=== PATIENT | female | born 1940 | race Caucasian/White ===

== ENCOUNTER 2018-04-14 14:30 | Emergency (ER) | payer MEDICARE, OTHER ==
[2018-04-14 14:46] VITALS: TEMP 97.8; O2SAT 98
[2018-04-14 14:55] LABS: BASOPHILS % (AUTO) 2 % (0-3); EOSINOPHILS % (AUTO) 4 % (0-9); HEMATOCRIT 38 % (35-47); HEMOGLOBIN 12.5 gm/dl (12.0-15.5); LYMPHOCYTES % (AUTO) 31.3 % (10-50); MEAN CORPUSCULAR HEMOGLOBIN 33.2 pg (27.0-32.0); MEAN CORPUSCULAR HGB CONC 32.8 gm/dl (32.0-36.0); MONOCYTES % (AUTO) 11.7 % (0-12); NEUTROPHILS % (AUTO) 51.5 % (37-80)
[2018-04-14 14:59] LABS: MEAN CORPUSCULAR VOLUME 101 fL (81-99)
[2018-04-14 15:09] LABS: BLOOD UREA NITROGEN 18 mg/dl (7-18); CALCIUM 8.6 mg/dl (8.5-10.1); CHLORIDE 109 mMol/L (98-107); CREATININE 1.23 mg/dl (0.60-1.00); GLUCOSE 88 mg/dl (74-106); POTASSIUM 3.9 mMol/L (3.5-5.1); SODIUM 143 mMol/L (136-145); TROP I < 0.017 ng/ml (0.000-0.056)
[2018-04-14] MEDS: SODIUM CHLORIDE 0.9% 500 ML 500 ML IV ONE (15:10)
[2018-04-14 15:14] LABS: CARBON DIOXIDE 29.8 mEq/L (21-32)
[2018-04-14] MEDS: SODIUM CHLORIDE 0.9% FLUSH 10 ML SOL IV PRN (15:24)
[2018-04-14 15:30] LABS: APPEARANCE,URINE Slightly Cloudy; BILIRUBIN,URINE NEGATIVE (NEGATIVE); COLOR,URINE Yellow; GLUCOSE, URINE (UA) NEGATIVE (NEGATIVE); KETONES,URINE TRACE (NEGATIVE); LEUKOCYTE ESTERASE ,URINE 2+ (NEGATIVE); NITRATE,URINE NEGATIVE (NEGATIVE); OCCULT BLOOD,URINE TRACE INTACT (NEG-TRACE); UROBILINOGEN,URINE 0.2 (0.2-1.0 EU)
[2018-04-14 15:45] LABS: BACTERIA 2+ (< 1+); CRYSTALS NEGATIVE (0-3 AVE/HPF); EPITHELIAL CELLS 0-2 (SQUAMOUS); RBC,URINE 0-2 (0-3AV/HPF)
[2018-04-14] MEDS ORDERED: SODIUM CHLORIDE 0.9% 50 ML 25 ML IV PRN (16:10)
[2018-04-14] MEDS ORDERED: LEVOFLOXACIN 25 MG/ML SOL IV ONE (16:14)
[2018-04-14] MEDS: LEVOFLOXACIN 25 MG/ML 500 MG in SODIUM CHLORIDE 0.9% 100 ML 100 ML IV ONE (16:19)
[2018-04-14] MEDS ORDERED: CIPROFLOXACIN HCL 500 MG TAB PO ONE (17:08)
[2018-04-14] MEDS: CIPROFLOXACIN HCL 500 MG TAB PO SCH (17:13)
[2018-04-14 18:56] VITALS: BP 124/55; PULSE 71; RESP 15
== END 2018-04-14 17:20 | DRG 312 ==
LOC: ED 14:30
DX: R55 Syncope and collapse (principal); N39.0 Urinary tract infection, site not specified; R53.1 Weakness; E86.0 Dehydration
CPT/HCPCS: 36415; 74019; 80048; 81001; 83880; 84484; 85025; 87088; 93005; 96365; 96366; 99284; 99285; J1956; A9270-GY